=== PATIENT | female | born 1955 | race Asian ===

== ENCOUNTER 2017-03-10 12:34 | Emergency (ER) | payer BC ==
[~2017-03-10] VITALS: Ht 157.5 cm; Wt 60.0 kg
[2017-03-10 12:47] VITALS: BP 131/70
== END 2017-03-10 15:59 | disposition home or self-care (01) ==
LOC: ER 13:18
DX: S93.401A Sprain of unspecified ligament of right ankle, initial encounter (principal); W19.XXXA Unspecified fall, initial encounter; Y93.89 Activity, other specified; Y92.009 Unspecified place in unspecified non-institutional (private) residence as the place of occurrence of the external cause; Y99.8 Other external cause status; F17.200 Nicotine dependence, unspecified, uncomplicated
CPT/HCPCS: 73610; 73630; 99284

== ENCOUNTER → 2017-03-24 | Outpatient (CLI) | payer BC ==
[2017-03-24 08:14] LABS: BASOPHILS % 0.5 % (0.0-2.0); EOSINOPHILS % 4.3 % (0.0-5.0); HEMATOCRIT. 38.6 % (36.0-48.0); HEMOGLOBIN. 13.2 g/dL (12.0-16.0); LYMPHOCYTES % 27.2 % (20.0-50.0); MEAN CORPUSCULAR HEMOGLOBIN 31.3 pg (28.0-32.0); MEAN CORPUSCULAR VOLUME 91.4 fL (81.0-99.0); MEAN PLATELET VOLUME 7.4 fl (7.4-10.4); MONOCYTES % 5.1 % (2.0-8.0); NEUTROPHILS % 62.9 % (40.0-76.0); PLATELET 222 x1000/uL (130-400); RED BLOOD CELL COUNT 4.23 mill/uL (4.2-5.4); RED CELL DISTRIBUTION WIDTH 12.7 % (11.6-14.6)
[2017-03-24 09:02] LABS: CLARITY URINE CLEAR (CLEAR); COLOR URINE YELLOW (YELLOW); GLUCOSE URINE NEGATIVE (NEGATIVE); KETONES URINE NEGATIVE (NEGATIVE); LEUKOCYTE ESTERASE URINE NEGATIVE (NEGATIVE); NITRITE URINE NEGATIVE (NEGATIVE); OCCULT BLOOD URINE 2+ (NEGATIVE); PROTEIN URINE NEGATIVE (NEGATIVE); UROBILINOGEN URINE 0.2 E.U./dL (0.2-1.0)
[2017-03-24 09:13] LABS: CARBON DIOXIDE 25 mEq/L (21-32); CHLORIDE 107 mEq/L (98-107); TOTAL IRON BINDING CAPACITY 270 ug/dL (250-450)
[2017-03-24 10:06] LABS: C REACTIVE PROTEIN QUANT 2.3 mg/L (0.0-3.0); HDL CHOLESTEROL 51 mg/dL (40-59); LDL CHOLESTEROL 85 mg/dL (5-100); T4 FREE 1.19 ng/dL (0.76-1.46)
[2017-03-25 17:18] LABS: ESTRADIOL < 6.0 pg/mL (.); FOLICLE STIMULATING HORMONE 49.2 mIU/mL (.); LUTEINIZING HORMONE 29.4 mIU/mL (.); PROGESTERONE 0.2 ng/mL (.); TRANSFERRIN 219 mg/dL (200-370)
[2017-03-25 17:58] LABS: HAV IGM ANTIBODY Negative (Negative); HBSAG SCREEN Negative (Negative); HEPATITIS B CORE IGM AB Negative (Negative); HEPATITIS C AB >11.0 s/co ratio (0.0-0.9)
[2017-03-26 13:06] LABS: VITAMIN D 25-OH 29.1 ng/mL (30.0-100.0)
== END | disposition home or self-care (01) ==
LOC: LAB 07:47
PROVIDERS: ATTEND Internal Medicine
DX: D50.9 Iron deficiency anemia, unspecified (principal); B17.9 Acute viral hepatitis, unspecified; E78.5 Hyperlipidemia, unspecified; N95.9 Unspecified menopausal and perimenopausal disorder; M10.00 Idiopathic gout, unspecified site; R94.5 Abnormal results of liver function studies; R68.89 Other general symptoms and signs; R94.4 Abnormal results of kidney function studies; R70.0 Elevated erythrocyte sedimentation rate; R73.09 Other abnormal glucose; R87.1 Abnormal level of hormones in specimens from female genital organs
CPT/HCPCS: 36415; 80053; 80061; 80074; 81001; 82024; 82248; 82306; 82533; 82626; 82670; 83001; 83002; 83036; 83540; 83550; 84100; 84144; 84403; 84439; 84443; 84466; 84481; 84550; 85025; 85651; 86140

== ENCOUNTER → 2017-08-11 | Outpatient (CLI) | payer BC ==
[2017-08-11 06:50] LABS: BASOPHILS % 0.7 % (0.0-2.0); EOSINOPHILS % 3.9 % (0.0-5.0); HEMATOCRIT. 41.8 % (36.0-48.0); LYMPHOCYTES % 33.5 % (20.0-50.0); MEAN CORPUSCULAR HEMOGLOBIN 31.3 pg (28.0-32.0); MEAN CORPUSCULAR VOLUME 93.1 fL (81.0-99.0); MEAN PLATELET VOLUME 7.5 fl (7.4-10.4); MONOCYTES % 5.6 % (2.0-8.0); NEUTROPHILS % 56.3 % (40.0-76.0); PLATELET 229 x1000/uL (130-400); RED BLOOD CELL COUNT 4.49 mill/uL (4.2-5.4)
[2017-08-11 07:24] LABS: CORTISOL 9.3 ucg/dL
[2017-08-11 07:31] LABS: CARBON DIOXIDE 26 mEq/L (21-32); CHLORIDE 105 mEq/L (98-107); HDL CHOLESTEROL 59 mg/dL (40-59); LDL CHOLESTEROL 168 mg/dL (5-100); T4 FREE 1.15 ng/dL (0.76-1.46); TOTAL IRON BINDING CAPACITY 276 ug/dL (250-450)
[2017-08-11 07:36] LABS: HEPATITIS B SURFACE ANTIGEN NEGATIVE
[2017-08-11 08:03] LABS: HEPATITIS B CORE AB IGM NEGATIVE
[2017-08-11 08:05] LABS: HEPATITIS A AB IGM NEGATIVE (NEGATIVE)
[2017-08-11 12:54] LABS: CLARITY URINE CLEAR (CLEAR); COLOR URINE YELLOW (YELLOW); GLUCOSE URINE NEGATIVE (NEGATIVE); KETONES URINE NEGATIVE (NEGATIVE); LEUKOCYTE ESTERASE URINE NEGATIVE (NEGATIVE); NITRITE URINE NEGATIVE (NEGATIVE); OCCULT BLOOD URINE TRACE (NEGATIVE); PROTEIN URINE NEGATIVE (NEGATIVE); SPECIFIC GRAVITY URINE 1.011 (1.005-1.030); UROBILINOGEN URINE 0.2 E.U./dL (0.2-1.0)
[2017-08-12 09:06] LABS: ESTRADIOL < 6.0 pg/mL (.); FOLICLE STIMULATING HORMONE 52.7 mIU/mL (.); LUTEINIZING HORMONE 30.8 mIU/mL (.); PROGESTERONE <0.1 ng/mL (.); TRANSFERRIN 219 mg/dL (200-370); VITAMIN D 25-OH 63.9 ng/mL (30.0-100.0)
== END | disposition home or self-care (01) ==
LOC: LAB 06:15
PROVIDERS: ATTEND Internal Medicine
DX: I10 Essential (primary) hypertension (principal); D64.9 Anemia, unspecified; E55.9 Vitamin D deficiency, unspecified; E78.00 Pure hypercholesterolemia, unspecified; D68.9 Coagulation defect, unspecified; N39.0 Urinary tract infection, site not specified; N95.9 Unspecified menopausal and perimenopausal disorder; R87.1 Abnormal level of hormones in specimens from female genital organs; R60.9 Edema, unspecified; R94.6 Abnormal results of thyroid function studies; R94.5 Abnormal results of liver function studies; R10.9 Unspecified abdominal pain
CPT/HCPCS: 36415; 80053; 80061; 81001; 82024; 82248; 82306; 82533; 82626; 82670; 83001; 83002; 83036; 83540; 83550; 84100; 84144; 84403; 84439; 84443; 84466; 84481; 84550; 85025; 85651; 86140; 86705; 86709; 86803; 87340

== ENCOUNTER → 2017-11-30 | Outpatient (CLI) | payer BC ==
[2017-11-30 10:13] LABS: BASOPHILS % 1.4 % (0.0-2.0); EOSINOPHILS % 3.3 % (0.0-5.0); HEMATOCRIT. 39.8 % (36.0-48.0); HEMOGLOBIN. 13.5 g/dL (12.0-16.0); LYMPHOCYTES % 36.3 % (20.0-50.0); MEAN CORPUSCULAR HEMOGLOBIN 31.6 pg (28.0-32.0); MEAN CORPUSCULAR VOLUME 93.2 fL (81.0-99.0); MEAN PLATELET VOLUME 7.6 fl (7.4-10.4); MONOCYTES % 5.7 % (2.0-8.0); NEUTROPHILS % 53.3 % (40.0-76.0); PLATELET 204 x1000/uL (130-400); RED BLOOD CELL COUNT 4.28 mill/uL (4.2-5.4); RED CELL DISTRIBUTION WIDTH 12.9 % (11.6-14.6)
[2017-11-30 10:49] LABS: KETONES URINE NEGATIVE (NEGATIVE); LEUKOCYTE ESTERASE URINE NEGATIVE (NEGATIVE); NITRITE URINE NEGATIVE (NEGATIVE); OCCULT BLOOD URINE 1+ (NEGATIVE); PH URINE 5.5 (4.5-8.0); PROTEIN URINE NEGATIVE (NEGATIVE); UROBILINOGEN URINE 0.2 E.U./dL (0.2-1.0)
[2017-11-30 10:50] LABS: CLARITY URINE CLEAR (CLEAR); COLOR URINE YELLOW (YELLOW)
[2017-11-30 11:01] LABS: CHLORIDE 108 mEq/L (98-107)
[2017-11-30 11:15] LABS: C REACTIVE PROTEIN QUANT 1.3 mg/L (0.0-3.0); HDL CHOLESTEROL 55 mg/dL (40-59); LDL CHOLESTEROL 99 mg/dL (5-100); PHOSPHORUS 3.4 mg/dL (2.5-4.9); T4 FREE 1.11 ng/dL (0.76-1.46); TOTAL IRON BINDING CAPACITY 272 ug/dL (250-450)
[2017-11-30 12:33] LABS: FOLIC ACID (FOLATE) SERUM >20 ng/mL ng/mL (>5.38)
[2017-11-30 12:34] LABS: CORTISOL 6.9 ucg/dL; TRIOIODOTHYRONINE TOTAL 1.29 ng/ml (0.60-1.81)
[2017-12-01 09:06] LABS: ESTRADIOL < 6.0 pg/mL (.); FOLICLE STIMULATING HORMONE 47.1 mIU/mL (.); HAV IGM ANTIBODY Negative (Negative); HBSAG SCREEN Negative (Negative); HEPATITIS B CORE IGM AB Negative (Negative); HEPATITIS C AB >11.0 s/co ratio (0.0-0.9); LUTEINIZING HORMONE 26.8 mIU/mL (.); PROGESTERONE 0.2 ng/mL (.); TRANSFERRIN 219 mg/dL (200-370); VITAMIN D 25-OH 64.6 ng/mL (30.0-100.0)
== END | disposition home or self-care (01) ==
LOC: MAMMO 09:04
PROVIDERS: ATTEND Internal Medicine
DX: Z12.31 Encounter for screening mammogram for malignant neoplasm of breast (principal); I10 Essential (primary) hypertension; E78.00 Pure hypercholesterolemia, unspecified; N39.0 Urinary tract infection, site not specified; D68.9 Coagulation defect, unspecified; N95.9 Unspecified menopausal and perimenopausal disorder; E55.9 Vitamin D deficiency, unspecified; R10.9 Unspecified abdominal pain; R94.5 Abnormal results of liver function studies; R87.1 Abnormal level of hormones in specimens from female genital organs; R60.9 Edema, unspecified
CPT/HCPCS: 36415; 71046; 77067; 80053; 80061; 80074; 80076; 81003; 82024; 82306; 82533; 82626; 82670; 82746; 83001; 83002; 83036; 83540; 83550; 84100; 84144; 84403; 84439; 84443; 84466; 84480; 84481; 84550; 85025; 85651; 86140

== ENCOUNTER 2018-10-11 10:03 | Emergency (ER) | payer BC ==
[~2018-10-11] VITALS: Ht 157.5 cm; Wt 59.0 kg
[2018-10-11 10:12] VITALS: BP 166/81
[2018-10-11 11:09] LABS: CLARITY URINE CLOUDY (CLEAR); COLOR URINE YELLOW (YELLOW); KETONES URINE TRACE (NEGATIVE); LEUKOCYTE ESTERASE URINE NEGATIVE (NEGATIVE); NITRITE URINE NEGATIVE (NEGATIVE); OCCULT BLOOD URINE 1+ (NEGATIVE); PH URINE 5.5 (4.5-8.0); PROTEIN URINE TRACE (NEGATIVE); SPECIFIC GRAVITY URINE 1.044 (1.005-1.030); UROBILINOGEN URINE 0.2 E.U./dL (0.2-1.0)
[2018-10-11 12:11] LABS: CHLORIDE 103 mEq/L (98-107)
== END 2018-10-11 13:18 | disposition home or self-care (01) ==
LOC: ER 10:03
DX: L29.2 Pruritus vulvae (principal); E11.65 Type 2 diabetes mellitus with hyperglycemia; I10 Essential (primary) hypertension; F41.9 Anxiety disorder, unspecified; F17.210 Nicotine dependence, cigarettes, uncomplicated; Z98.890 Other specified postprocedural states
CPT/HCPCS: 36415; 80048; 80076; 82962; 87210; 99283

== ENCOUNTER → 2019-02-27 | Outpatient (CLI) | payer BC | END | disposition home or self-care (01) | LOC: MAMMO 09:25 | PROVIDERS: ATTEND Internal Medicine | DX: Z12.31 Encounter for screening mammogram for malignant neoplasm of breast (principal) | CPT/HCPCS: 77067 ==

== ENCOUNTER → 2019-04-11 | Outpatient (CLI) | payer BC ==
[2019-04-11 08:11] LABS: CLARITY URINE CLEAR (CLEAR); COLOR URINE YELLOW (YELLOW); KETONES URINE NEGATIVE (NEGATIVE); LEUKOCYTE ESTERASE URINE NEGATIVE (NEGATIVE); NITRITE URINE NEGATIVE (NEGATIVE); OCCULT BLOOD URINE TRACE (NEGATIVE); PROTEIN URINE NEGATIVE (NEGATIVE); SPECIFIC GRAVITY URINE 1.002 (1.005-1.030); UROBILINOGEN URINE 0.2 E.U./dL (0.2-1.0)
[2019-04-11 08:12] LABS: BASOPHILS % 0.7 % (0.0-2.0); EOSINOPHILS % 3.5 % (0.0-5.0); HEMOGLOBIN. 14.4 g/dL (12.0-16.0); LYMPHOCYTES % 31.5 % (20.0-50.0); MEAN CORPUSCULAR HEMOGLOBIN 32.6 pg (28.0-32.0); MEAN CORPUSCULAR VOLUME 94.8 fL (81.0-99.0); MEAN PLATELET VOLUME 7.3 fl (7.4-10.4); MONOCYTES % 4.5 % (2.0-8.0); NEUTROPHILS % 59.8 % (40.0-76.0); PLATELET 241 x1000/uL (130-400); RED BLOOD CELL COUNT 4.43 mill/uL (4.2-5.4); RED CELL DISTRIBUTION WIDTH 13.1 % (11.6-14.6)
[2019-04-11 08:22] LABS: CHLORIDE 102 mEq/L (98-107)
[2019-04-11 08:28] LABS: LDL CHOLESTEROL 158 mg/dL (5-100); PHOSPHORUS 3.3 mg/dL (2.5-4.9)
[2019-04-11 08:29] LABS: C REACTIVE PROTEIN QUANT 1.5 mg/L (0.0-3.0)
[2019-04-11 08:30] LABS: HDL CHOLESTEROL 58 mg/dL (40-59); TOTAL IRON BINDING CAPACITY 236 ug/dL (250-450)
[2019-04-11 08:32] LABS: T4 FREE 1.11 ng/dL (0.76-1.46)
[2019-04-11 08:37] LABS: CORTISOL 6.6 ucg/dL; TRIOIODOTHYRONINE TOTAL 1.15 ng/ml (0.60-1.81)
[2019-04-11 08:48] LABS: HEPATITIS B SURFACE ANTIGEN NEGATIVE
[2019-04-11 09:17] LABS: HEPATITIS A AB IGM NEGATIVE (NEGATIVE)
[2019-04-12 09:15] LABS: FOLICLE STIMULATING HORMONE 54.4 mIU/mL (.); HELICOBACTER PYLORI AB IGG 1.3 (0.00-0.79); LUTEINIZING HORMONE 31.5 mIU/mL (.); PROGESTERONE 0.2 ng/mL (.); VITAMIN D 25-OH 36.6 ng/mL (30.0-100.0)
[2019-04-12 17:11] LABS: HELICOBACTER PYLORI IGM <9.0 units (0.0-8.9)
[2019-04-13 09:06] LABS: TRANSFERRIN 240 mg/dL (200-370)
== END | disposition home or self-care (01) ==
LOC: LAB 07:22
PROVIDERS: ATTEND Internal Medicine
DX: D64.9 Anemia, unspecified (principal); E78.00 Pure hypercholesterolemia, unspecified; I10 Essential (primary) hypertension; N39.0 Urinary tract infection, site not specified; E55.9 Vitamin D deficiency, unspecified; D68.9 Coagulation defect, unspecified; R10.9 Unspecified abdominal pain; R94.5 Abnormal results of liver function studies; R60.9 Edema, unspecified; R94.6 Abnormal results of thyroid function studies; N95.9 Unspecified menopausal and perimenopausal disorder; R87.1 Abnormal level of hormones in specimens from female genital organs
CPT/HCPCS: 36415; 80061; 80076; 82024; 82248; 82306; 82533; 82626; 83001; 83002; 83036; 83540; 83550; 84100; 84144; 84403; 84436; 84439; 84443; 84466; 84480; 84481; 84550; 85651; 86140; 86677; 86705; 86709; 86803; 87340

== ENCOUNTER → 2019-05-01 | Outpatient (CLI) | payer BC ==
[2019-05-01 14:06] LABS: CLARITY URINE CLEAR (CLEAR); COLOR URINE YELLOW (YELLOW); KETONES URINE NEGATIVE (NEGATIVE); LEUKOCYTE ESTERASE URINE NEGATIVE (NEGATIVE); NITRITE URINE NEGATIVE (NEGATIVE); OCCULT BLOOD URINE TRACE (NEGATIVE); PROTEIN URINE NEGATIVE (NEGATIVE); SPECIFIC GRAVITY URINE 1.002 (1.005-1.030); UROBILINOGEN URINE 0.2 E.U./dL (0.2-1.0)
== END | disposition home or self-care (01) ==
LOC: LAB 13:29
PROVIDERS: ATTEND Internal Medicine
DX: N39.0 Urinary tract infection, site not specified (principal)
CPT/HCPCS: 81003

== ENCOUNTER → 2019-10-28 | Outpatient (CLI) | payer BC ==
[2019-10-28 09:11] LABS: BASOPHILS % 0.1 % (0.0-2.0); HEMATOCRIT. 42.4 % (36.0-48.0); HEMOGLOBIN. 14.5 g/dL (12.0-16.0); LYMPHOCYTES % 20.3 % (20.0-50.0); MEAN CORPUSCULAR HEMOGLOBIN 32.3 pg (28.0-32.0); MEAN CORPUSCULAR VOLUME 94.6 fL (81.0-99.0); MEAN PLATELET VOLUME 7.8 fl (7.4-10.4); MONOCYTES % 3.5 % (2.0-8.0); NEUTROPHILS % 74.1 % (40.0-76.0); PLATELET 215 x1000/uL (130-400); RED BLOOD CELL COUNT 4.49 mill/uL (4.2-5.4); RED CELL DISTRIBUTION WIDTH 12.6 % (11.6-14.6)
[2019-10-28 09:16] LABS: CLARITY URINE CLEAR (CLEAR); COLOR URINE YELLOW (YELLOW); KETONES URINE NEGATIVE (NEGATIVE); LEUKOCYTE ESTERASE URINE NEGATIVE (NEGATIVE); NITRITE URINE NEGATIVE (NEGATIVE); OCCULT BLOOD URINE TRACE (NEGATIVE); PROTEIN URINE NEGATIVE (NEGATIVE); SPECIFIC GRAVITY URINE 1.003 (1.005-1.030); UROBILINOGEN URINE 0.2 E.U./dL (0.2-1.0)
[2019-10-28 10:47] LABS: CHLORIDE 106 mEq/L (98-107)
[2019-10-28 10:52] LABS: LDL CHOLESTEROL 189 mg/dL (5-100)
[2019-10-28 10:54] LABS: HDL CHOLESTEROL 63 mg/dL (40-59)
[2019-10-28 10:59] LABS: C REACTIVE PROTEIN QUANT 1.3 mg/L (0.0-3.0)
[2019-10-28 11:00] LABS: T4 FREE 1.16 ng/dL (0.76-1.46)
[2019-10-29 09:09] LABS: FOLICLE STIMULATING HORMONE 45.7 mIU/mL (.); LUTEINIZING HORMONE 26.7 mIU/mL (.); PROGESTERONE 0.2 ng/mL (.); TRANSFERRIN 228 mg/dL (200-370); VITAMIN D 25-OH 27.3 ng/mL (30.0-100.0)
[2019-10-29 20:11] LABS: CORTISOL 6.7 ucg/dL; TRIOIODOTHYRONINE TOTAL 1.15 ng/ml (0.60-1.81)
[2019-10-29 20:23] LABS: HEPATITIS B SURFACE ANTIGEN NEGATIVE
== END | disposition home or self-care (01) ==
LOC: LAB 08:14
PROVIDERS: ATTEND Internal Medicine
DX: I10 Essential (primary) hypertension (principal); E78.00 Pure hypercholesterolemia, unspecified; E55.9 Vitamin D deficiency, unspecified; D64.9 Anemia, unspecified; N39.0 Urinary tract infection, site not specified; N95.9 Unspecified menopausal and perimenopausal disorder; D68.9 Coagulation defect, unspecified; R94.6 Abnormal results of thyroid function studies; R60.9 Edema, unspecified; R94.5 Abnormal results of liver function studies; R87.1 Abnormal level of hormones in specimens from female genital organs
CPT/HCPCS: 36415; 80053; 80061; 81003; 82024; 82248; 82306; 82533; 82626; 83001; 83002; 83036; 84100; 84144; 84403; 84439; 84443; 84466; 84480; 84481; 84550; 85025; 85651; 86140; 86677; 86705; 86709; 86803; 87340

== ENCOUNTER 2020-01-17 12:56 | Inpatient (IN) | payer BC ==
[~2020-01-17] VITALS: Ht 154.9 cm; Wt 59.0 kg
[2020-01-17] VITALS (24 sets, daily range): BP systolic 44–160; BP diastolic 28–94
[2020-01-17 14:04] LABS: CLARITY URINE CLEAR (CLEAR); COLOR URINE YELLOW (YELLOW); KETONES URINE NEGATIVE (NEGATIVE); LEUKOCYTE ESTERASE URINE TRACE (NEGATIVE); NITRITE URINE NEGATIVE (NEGATIVE); OCCULT BLOOD URINE 1+ (NEGATIVE); PH URINE 5.5 (4.5-8.0); PROTEIN URINE NEGATIVE (NEGATIVE); SPECIFIC GRAVITY URINE 1.019 (1.005-1.030)
[2020-01-17 14:06] LABS: BASOPHILS % 0.3 % (0.0-2.0); EOSINOPHILS % 2.6 % (0.0-5.0); HEMOGLOBIN. 13.9 g/dL (12.0-16.0); LYMPHOCYTES % 34.1 % (20.0-50.0); MEAN CORPUSCULAR HEMOGLOBIN 31.7 pg (28.0-32.0); MEAN PLATELET VOLUME 7.5 fl (7.4-10.4); PLATELET 222 x1000/uL (130-400); RED BLOOD CELL COUNT 4.37 mill/uL (4.2-5.4); RED CELL DISTRIBUTION WIDTH 13.1 % (11.6-14.6)
[2020-01-17 14:09] LABS: CHLORIDE 106 mEq/L (98-107)
[2020-01-17 14:12] LABS: INR 0.9; PROTHROMBIN TIME 10.3 sec (9.6-11.0)
[2020-01-17] MEDS ORDERED: DEXAMETHASONE 4MG/ML 1ML VIAL IV ONE (14:30)
[2020-01-17] MEDS ORDERED: LEVETIRACETAM 500MG PREMIX 100 ML IV ONE (14:30)
[2020-01-17] MEDS ORDERED: LEVETIRACETAM 1000MG/100ML 100 ML IV NR (15:45)
[2020-01-17] MEDS ORDERED: GADOBENATE DIMEGLUMINE 529 MG/ML 10ML IV ONE (16:07)
[2020-01-17] MEDS ORDERED: NICARDIPINE 100 MG in SODIUM CHLORIDE 0.9% 60 ML IV PRN ×2 (16:45→18:15)
[2020-01-17] MEDS ORDERED: MORPHINE SULFATE 2 MG/ML CPJ (NOT FOR IM USE) IV PRN (16:45)
[2020-01-17] MEDS ORDERED: LEVETIRACETAM 500MG PREMIX 100 ML IV SCH (17:00)
[2020-01-17] MEDS ORDERED: DEXAMETHASONE 4MG/ML 1ML VIAL IV SCH (18:00)
[2020-01-17] MEDS: DEXT 5%/LACTATED RINGERS 1,000 ML IV SCH (18:06)
[2020-01-17] MEDS: MORPHINE SULFATE 2 MG/ML CPJ (NOT FOR IM USE) IV PRN (20:55)
[2020-01-17] MEDS: LEVETIRACETAM 500MG PREMIX 100 ML IV SCH (23:42)
[2020-01-17] MEDS: DEXAMETHASONE 4MG/ML 1ML VIAL IV SCH (23:43)
[2020-01-18] VITALS (85 sets, daily range): BP systolic 78–146; BP diastolic 38–108
[2020-01-18] MEDS: MORPHINE SULFATE 2 MG/ML CPJ (NOT FOR IM USE) IV PRN ×2 (02:35→11:48)
[2020-01-18] MEDS: DEXAMETHASONE 4MG/ML 1ML VIAL IV SCH (05:52)
[2020-01-18] MEDS ORDERED: NORMAL SALINE 0.9% 10 ML SYR ONE (06:23)
[2020-01-18] MEDS ORDERED: BACITRACIN 15GM TUBE TOP ONE (06:23)
[2020-01-18] MEDS ORDERED: THROMBIN (BOVINE) 5000 UNITS/VIAL TOP ONE (06:23)
[2020-01-18] MEDS ORDERED: LIDOCAINE HCL/EPINEPHRINE 1%-EPI 1:100,000 20 ML VIAL ONE (06:24)
[2020-01-18] MEDS ORDERED: BACITRACIN 50,000 UNITS/VIAL ONE (06:24)
[2020-01-18] MEDS ORDERED: ROCURONIUM BROMIDE 10MG/ML VIAL 5ML IV ONE (06:48)
[2020-01-18] MEDS ORDERED: FENTANYL CITRATE/PF 50MCG/ML 2ML VIAL ONE (06:48)
[2020-01-18] MEDS ORDERED: EPINEPHRINE 1:1000 1 MG/ML AMP ONE (06:48)
[2020-01-18] MEDS ORDERED: GLYCOPYRROLATE 0.2 MG/ML 2ML VIAL ONE (06:49)
[2020-01-18] MEDS ORDERED: PROPOFOL 200MG/20ML VIAL IV ONE (06:49)
[2020-01-18] MEDS ORDERED: MIDAZOLAM HCL 2 MG/2 ML VIAL ONE (06:49)
[2020-01-18] MEDS ORDERED: NEOSTIGMINE METHYLSULFATE 1MG/ML 10 ML VIAL ONE (06:49)
[2020-01-18] MEDS ORDERED: DEXAMETHASONE 4MG/ML 1ML VIAL ONE ×2 (07:04→08:19)
[2020-01-18] MEDS ORDERED: PHENYTOIN SODIUM 250MG/5ML VIAL IV ONE (07:04)
[2020-01-18] MEDS ORDERED: MANNITOL 20% 500 ML IV ONE (07:04)
[2020-01-18] MEDS ORDERED: PHENYTOIN SODIUM 100MG/2ML VIAL IV SCH ×2 (07:15→14:00)
[2020-01-18] MEDS ORDERED: MORPHINE SULFATE 4 MG/ML CPJ (NOT FOR IM USE) IV PRN (07:15)
[2020-01-18] MEDS ORDERED: LEVETIRACETAM 500MG PREMIX 100 ML IV ONE (07:32)
[2020-01-18] MEDS ORDERED: SODIUM CHLORIDE 0.9% 10ML VIAL ONE (09:36)
[2020-01-18] MEDS ORDERED: CEFAZOLIN SODIUM 1000MG/VIAL ONE (09:36)
[2020-01-18] MEDS: PANTOPRAZOLE SODIUM 40 MG/VIAL IV SCH (10:27)
[2020-01-18] MEDS: DEXAMETHASONE 10 MG/ML VIAL IV SCH ×4 (10:27→21:31)
[2020-01-18] MEDS: LEVETIRACETAM 500MG PREMIX 100 ML IV SCH ×2 (10:28→21:31)
[2020-01-18 11:42] LABS: CHLORIDE 108 mEq/L (98-107)
[2020-01-18 12:07] LABS: HEMATOCRIT. 33.2 % (36.0-48.0); HEMOGLOBIN. 11.4 g/dL (12.0-16.0); MEAN CORPUSCULAR HEMOGLOBIN 32.2 pg (28.0-32.0); MEAN CORPUSCULAR VOLUME 93.7 fL (81.0-99.0); MEAN PLATELET VOLUME 7.7 fl (7.4-10.4); PLATELET 181 x1000/uL (130-400); RED BLOOD CELL COUNT 3.54 mill/uL (4.2-5.4)
[2020-01-18 13:01] LABS: PLATELET ESTIMATE NORMAL
[2020-01-18] MEDS: DEXT 5%/LACTATED RINGERS 1,000 ML IV SCH (13:50)
[2020-01-18] MEDS: CEFAZOLIN 1000MG PREMIX 50 ML IV SCH ×2 (13:54→21:31)
[2020-01-18] MEDS ORDERED: CEFAZOLIN SODIUM 1000MG/VIAL IV SCH (14:00)
[2020-01-18] MEDS ORDERED: DEXTROSE 50% WATER 50ML SYRINGE IV PRN (17:15)
[2020-01-18] MEDS: METFORMIN HCL 500MG TABLET PO SCH (17:35)
[2020-01-18] MEDS: BLOOD SUGAR DIAGNOSTIC STRIP TEST SCH ×2 (17:37→21:31)
[2020-01-18] MEDS: INSULIN LISPRO 100 UNITS/ML SUBCUT SCH ×2 (17:46→21:34)
[2020-01-19] VITALS (99 sets, daily range): BP systolic 79–169; BP diastolic 31–105
[2020-01-19] MEDS: DEXAMETHASONE 10 MG/ML VIAL IV SCH ×6 (00:23→20:58)
[2020-01-19] MEDS: BLOOD SUGAR DIAGNOSTIC STRIP TEST SCH ×4 (06:51→20:43)
[2020-01-19] MEDS: CEFAZOLIN 1000MG PREMIX 50 ML IV SCH ×3 (06:55→21:57)
[2020-01-19] MEDS: INSULIN LISPRO 100 UNITS/ML SUBCUT SCH ×4 (07:02→20:58)
[2020-01-19] MEDS: METFORMIN HCL 500MG TABLET PO SCH ×2 (07:02→17:26)
[2020-01-19 07:54] LABS: HEMATOCRIT. 32.7 % (36.0-48.0); HEMOGLOBIN. 11.1 g/dL (12.0-16.0); MEAN CORPUSCULAR VOLUME 94.2 fL (81.0-99.0); MEAN PLATELET VOLUME 8.1 fl (7.4-10.4); PLATELET 201 x1000/uL (130-400); RED BLOOD CELL COUNT 3.47 mill/uL (4.2-5.4); RED CELL DISTRIBUTION WIDTH 13.1 % (11.6-14.6)
[2020-01-19 08:00] LABS: CHLORIDE 108 mEq/L (98-107)
[2020-01-19] MEDS: PANTOPRAZOLE SODIUM 40 MG/VIAL IV SCH (10:05)
[2020-01-19] MEDS: LEVETIRACETAM 500MG PREMIX 100 ML IV SCH ×2 (10:07→20:58)
[2020-01-19] MEDS: MORPHINE SULFATE 2 MG/ML CPJ (NOT FOR IM USE) IV PRN ×2 (10:07→18:27)
[2020-01-19] MEDS: DEXT 5%/LACTATED RINGERS 1,000 ML IV SCH (12:48)
[2020-01-20] VITALS (36 sets, daily range): BP systolic 99–147; BP diastolic 39–112
[2020-01-20] MEDS: DEXAMETHASONE 10 MG/ML VIAL IV SCH ×3 (00:29→08:07)
[2020-01-20] MEDS: MORPHINE SULFATE 2 MG/ML CPJ (NOT FOR IM USE) IV PRN ×2 (05:10→11:41)
[2020-01-20] MEDS: CEFAZOLIN 1000MG PREMIX 50 ML IV SCH (05:59)
[2020-01-20] MEDS: BLOOD SUGAR DIAGNOSTIC STRIP TEST SCH ×4 (07:41→21:19)
[2020-01-20 07:47] LABS: HEMATOCRIT. 32.5 % (36.0-48.0); HEMOGLOBIN. 11.1 g/dL (12.0-16.0); MEAN CORPUSCULAR HEMOGLOBIN 32.4 pg (28.0-32.0); MEAN CORPUSCULAR VOLUME 94.3 fL (81.0-99.0); PLATELET 161 x1000/uL (130-400); RED BLOOD CELL COUNT 3.44 mill/uL (4.2-5.4); RED CELL DISTRIBUTION WIDTH 12.9 % (11.6-14.6)
[2020-01-20 08:07] LABS: CHLORIDE 107 mEq/L (98-107)
[2020-01-20] MEDS: METFORMIN HCL 500MG TABLET PO SCH ×2 (08:07→18:37)
[2020-01-20] MEDS: FAMOTIDINE 20MG/2ML VIAL IV SCH ×2 (08:07→21:29)
[2020-01-20] MEDS: LEVETIRACETAM 500MG PREMIX 100 ML IV SCH ×2 (08:07→21:30)
[2020-01-20] MEDS: INSULIN LISPRO 100 UNITS/ML SUBCUT SCH ×4 (08:08→21:00)
[2020-01-20 08:35] LABS: PLATELET ESTIMATE NORMAL
[2020-01-20 11:03] LABS: PLATELET ESTIMATE NORMAL
[2020-01-20] MEDS ORDERED: HYDRALAZINE 20MG/ML VIAL IV PRN (13:30)
[2020-01-20] MEDS ORDERED: METF-414 PO (13:35)
[2020-01-20] MEDS: HYDROCODONE/ACETAMINOPHEN 5/325MG TABLET PO PRN (17:42)
[2020-01-20] MEDS ORDERED: PNEUMOCOCCAL 23-VAL P-SAC VAC 0.5 ML IM ONE (18:30)
[2020-01-20] MEDS: DEXAMETHASONE 4MG TABLET PO SCH (21:29)
[2020-01-20] MEDS ORDERED: ONDANSETRON HCL 4MG/2ML INJ IV PRN (21:30)
[2020-01-21] VITALS (11 sets, daily range): BP systolic 92–160; BP diastolic 51–100
[2020-01-21 06:37] LABS: BASOPHILS % 0.1 % (0.0-2.0); HEMATOCRIT. 30.2 % (36.0-48.0); HEMOGLOBIN. 10.7 g/dL (12.0-16.0); LYMPHOCYTES % 9.7 % (20.0-50.0); MEAN CORPUSCULAR VOLUME 93.4 fL (81.0-99.0); MEAN PLATELET VOLUME 8.2 fl (7.4-10.4); MONOCYTES % 3.7 % (2.0-8.0); NEUTROPHILS % 86.5 % (40.0-76.0); PLATELET 172 x1000/uL (130-400); RED BLOOD CELL COUNT 3.23 mill/uL (4.2-5.4); RED CELL DISTRIBUTION WIDTH 12.8 % (11.6-14.6)
[2020-01-21 06:57] LABS: CHLORIDE 104 mEq/L (98-107)
[2020-01-21] MEDS: BLOOD SUGAR DIAGNOSTIC STRIP TEST SCH ×2 (07:30→11:55)
[2020-01-21] MEDS ORDERED: HYDRALAZINE 20MG/ML VIAL IV PRN (07:30)
[2020-01-21] MEDS: INSULIN LISPRO 100 UNITS/ML SUBCUT SCH ×2 (08:00→12:11)
[2020-01-21] MEDS: DEXAMETHASONE 4MG TABLET PO SCH (08:15)
[2020-01-21] MEDS: LEVETIRACETAM 500MG PREMIX 100 ML IV SCH (08:15)
[2020-01-21] MEDS: METFORMIN HCL 500MG TABLET PO SCH (08:15)
[2020-01-21] MEDS: HYDROCODONE/ACETAMINOPHEN 5/325MG TABLET PO PRN ×2 (09:58→15:42)
[2020-01-21] MEDS: FAMOTIDINE 20MG/2ML VIAL IV SCH (10:11)
[2020-01-22] MEDS ORDERED: DEXAMETHASONE 2MG TABLET PO SCH (09:00)
== END 2020-01-21 16:45 | DRG 25 ==
LOC: ER 13:44 → EDBEDREQSVC 15:23 → EDBEDREQ 15:23 → EDBEDREQTM 15:23 → 5EST 17:11 → ENRESERV 17:14 → EDBEDREQTM 17:23 → EDBEDREQ 17:23 → 5EST 01-20 17:10
PROVIDERS: ADMIT Internal Medicine; ATTEND Internal Medicine
PROC: 00B00ZZ Excision of Brain, Open Approach (ICD-10-PCS; principal; 2020-01-18)
PROC: 00U207Z Supplement Dura Mater with Autologous Tissue Substitute, Open Approach (ICD-10-PCS; 2020-01-18)
DX: C79.31 Secondary malignant neoplasm of brain (principal); G93.6 Cerebral edema; I61.9 Nontraumatic intracerebral hemorrhage, unspecified; G81.94 Hemiplegia, unspecified affecting left nondominant side; E46 Unspecified protein-calorie malnutrition; G93.40 Encephalopathy, unspecified; C34.91 Malignant neoplasm of unspecified part of right bronchus or lung; E11.9 Type 2 diabetes mellitus without complications; F41.9 Anxiety disorder, unspecified; B19.20 Unspecified viral hepatitis C without hepatic coma; R00.1 Bradycardia, unspecified; J44.9 Chronic obstructive pulmonary disease, unspecified; D64.9 Anemia, unspecified; D72.829 Elevated white blood cell count, unspecified; F17.210 Nicotine dependence, cigarettes, uncomplicated; I11.9 Hypertensive heart disease without heart failure; I25.10 Atherosclerotic heart disease of native coronary artery without angina pectoris; Z80.9 Family history of malignant neoplasm, unspecified; Z82.49 Family history of ischemic heart disease and other diseases of the circulatory system; Z82.3 Family history of stroke; Z71.6 Tobacco abuse counseling; Z68.24 Body mass index [BMI] 24.0-24.9, adult
CPT/HCPCS: 36415; 70553; 71045; 71250; 80048; 80053; 81003; 82378; 82962; 83036; 83615; 83735; 84443; 84484; 85025; 86850; 86900; 87635; 88309; 88331; 90732; 92610; 93005; 93306; 96365; 97163; 97166; 97530; 99291; A9577; C1713; C9113; J0360; J0690; J1100; J1165; J1815; J1953; J2250; J2270; J2405; J2704; J2710; J3010; J3490; J7050; J7120; J8540

== ENCOUNTER 2020-01-21 17:00 | Inpatient (IN) | payer BC ==
[~2020-01-21] VITALS: Ht 157.5 cm; Wt 55.8 kg
[~2020-01-21 17:00] MED LIST: METF-414 PO
[2020-01-21] MEDS: HYDROCODONE/ACETAMINOPHEN 5/325MG TABLET PO PRN (18:03)
[2020-01-21 18:14] VITALS: BP 131/62
[2020-01-21] MEDS ORDERED: DEXTROSE 50% WATER 50ML SYRINGE IV PRN (18:15)
[2020-01-21] MEDS ORDERED: CLONIDINE 0.1MG TABLET PO PRN (18:15)
[2020-01-21] MEDS ORDERED: HYDROCODONE/ACETAMINOPHEN 10/325MG TABLET PO PRN (18:41)
[2020-01-21 20:00] VITALS: BP 128/61
[2020-01-21] MEDS: LEVETIRACETAM 500MG TABLET PO SCH (20:42)
[2020-01-21] MEDS: FAMOTIDINE 20MG TABLET PO SCH (20:42)
[2020-01-21] MEDS: BLOOD SUGAR DIAGNOSTIC STRIP TEST SCH (20:42)
[2020-01-21] MEDS: INSULIN LISPRO 100 UNITS/ML SUBCUT SCH (20:42)
[2020-01-21] MEDS ORDERED: DEXAMETHASONE 4MG TABLET PO SCH (21:00)
[2020-01-22] MEDS: BLOOD SUGAR DIAGNOSTIC STRIP TEST SCH ×4 (06:11→21:02)
[2020-01-22] MEDS: INSULIN LISPRO 100 UNITS/ML SUBCUT SCH ×4 (06:38→21:00)
[2020-01-22 06:39] LABS: BASOPHILS % 0.1 % (0.0-2.0); HEMATOCRIT. 33.1 % (36.0-48.0); HEMOGLOBIN. 11.6 g/dL (12.0-16.0); LYMPHOCYTES % 22.9 % (20.0-50.0); MEAN CORPUSCULAR HEMOGLOBIN 32.6 pg (28.0-32.0); MEAN PLATELET VOLUME 7.8 fl (7.4-10.4); MONOCYTES % 6.3 % (2.0-8.0); NEUTROPHILS % 70.7 % (40.0-76.0); PLATELET 186 x1000/uL (130-400); RED BLOOD CELL COUNT 3.55 mill/uL (4.2-5.4); RED CELL DISTRIBUTION WIDTH 12.8 % (11.6-14.6)
[2020-01-22 06:51] LABS: CHLORIDE 104 mEq/L (98-107)
[2020-01-22] MEDS: HYDROCODONE/ACETAMINOPHEN 5/325MG TABLET PO PRN ×2 (07:56→17:05)
[2020-01-22 08:00] VITALS: BP 102/58
[2020-01-22] MEDS: FAMOTIDINE 20MG TABLET PO SCH ×2 (08:03→20:55)
[2020-01-22] MEDS: LEVETIRACETAM 500MG TABLET PO SCH ×2 (08:03→20:55)
[2020-01-22] MEDS: METFORMIN HCL 500MG TABLET PO SCH ×2 (08:03→17:00)
[2020-01-22] MEDS: DEXAMETHASONE 2MG TABLET PO SCH (08:03)
[2020-01-22 08:14] VITALS: BP 124/59
[2020-01-22] MEDS: ONDANSETRON 4MG ODT PO PRN (08:15)
[2020-01-22] MEDS: MECLIZINE 25MG TABLET PO PRN (09:42)
[2020-01-22] MEDS ORDERED: BISACODYL 10MG SUPP PR PRN (14:15)
[2020-01-22 15:59] LABS: CLARITY URINE CLOUDY (CLEAR); COLOR URINE YELLOW (YELLOW); KETONES URINE NEGATIVE (NEGATIVE); LEUKOCYTE ESTERASE URINE 2+ (NEGATIVE); NITRITE URINE NEGATIVE (NEGATIVE); OCCULT BLOOD URINE NEGATIVE (NEGATIVE); PROTEIN URINE NEGATIVE (NEGATIVE); SPECIFIC GRAVITY URINE 1.025 (1.005-1.030)
[2020-01-22] MEDS: LACTULOSE 20G/30ML UDC PO SCH ×2 (17:00→20:55)
[2020-01-22] MEDS: DOCUSATE SODIUM 100MG CAPSULE PO SCH (17:00)
[2020-01-22] MEDS ORDERED: NA PHOS,M-B/NA PHOS,DI-BA ENEMA 118ML PR NR (19:15)
[2020-01-22 20:00] VITALS: BP 111/50
[2020-01-22] MEDS: POLYETHYLENE GLYCOL 3350 (17GM) 1 DOSE PACK PO SCH (20:55)
[2020-01-23] MEDS: ACETAMINOPHEN 325MG TABLET PO PRN ×2 (02:26→14:36)
[2020-01-23] MEDS: MECLIZINE 25MG TABLET PO PRN (03:09)
[2020-01-23] MEDS: ONDANSETRON 4MG ODT PO PRN (04:32)
[2020-01-23] MEDS: BLOOD SUGAR DIAGNOSTIC STRIP TEST SCH ×4 (05:59→20:48)
[2020-01-23] MEDS: INSULIN LISPRO 100 UNITS/ML SUBCUT SCH ×4 (05:59→20:48)
[2020-01-23 08:12] LABS: BASOPHILS % 0.1 % (0.0-2.0); HEMATOCRIT. 35.5 % (36.0-48.0); HEMOGLOBIN. 12.3 g/dL (12.0-16.0); LYMPHOCYTES % 43.9 % (20.0-50.0); MEAN CORPUSCULAR HEMOGLOBIN 32.6 pg (28.0-32.0); MEAN CORPUSCULAR VOLUME 94.2 fL (81.0-99.0); MEAN PLATELET VOLUME 7.8 fl (7.4-10.4); MONOCYTES % 6.3 % (2.0-8.0); NEUTROPHILS % 48.7 % (40.0-76.0); PLATELET 207 x1000/uL (130-400); RED BLOOD CELL COUNT 3.76 mill/uL (4.2-5.4); RED CELL DISTRIBUTION WIDTH 12.9 % (11.6-14.6)
[2020-01-23 08:21] VITALS: BP 122/53
[2020-01-23 08:21] LABS: CHLORIDE 106 mEq/L (98-107)
[2020-01-23 08:26] LABS: PHOSPHORUS 4.4 mg/dL (2.5-4.9); TOTAL IRON BINDING CAPACITY 209 ug/dL (250-450)
[2020-01-23 08:45] LABS: FOLIC ACID (FOLATE) SERUM > 20.00 ng/mL (>5.38)
[2020-01-23 08:54] LABS: VITAMIN B12 SERUM 1586 pg/mL (211-911)
[2020-01-23] MEDS ORDERED: POTASSIUM CHLORIDE 20MEQ TABLET SR PO SCH (09:00)
[2020-01-23] MEDS: METFORMIN HCL 500MG TABLET PO SCH ×2 (09:17→16:16)
[2020-01-23] MEDS: FAMOTIDINE 20MG TABLET PO SCH ×2 (09:17→20:48)
[2020-01-23] MEDS: DOCUSATE SODIUM 100MG CAPSULE PO SCH ×2 (09:18→16:16)
[2020-01-23] MEDS: DEXAMETHASONE 2MG TABLET PO SCH (09:18)
[2020-01-23] MEDS: LEVETIRACETAM 500MG TABLET PO SCH ×2 (09:18→20:47)
[2020-01-23] MEDS: HYDROCODONE/ACETAMINOPHEN 5/325MG TABLET PO PRN ×3 (10:03→22:11)
[2020-01-23 11:20] LABS: FERRITIN 377 ng/mL (10-291)
[2020-01-23 13:44] VITALS: BP 94/52
[2020-01-23 14:27] VITALS: BP 112/73
[2020-01-23 20:00] VITALS: BP 101/49
[2020-01-23] MEDS: POLYETHYLENE GLYCOL 3350 (17GM) 1 DOSE PACK PO SCH (20:48)
[2020-01-24 04:30] VITALS: BP 105/54
[2020-01-24] MEDS: MECLIZINE 25MG TABLET PO PRN (04:45)
[2020-01-24 05:55] VITALS: BP 98/42
[2020-01-24] MEDS: BLOOD SUGAR DIAGNOSTIC STRIP TEST SCH ×4 (06:04→20:21)
[2020-01-24 08:00] VITALS: BP 125/65
[2020-01-24] MEDS: DEXAMETHASONE 2MG TABLET PO SCH (08:21)
[2020-01-24] MEDS: DOCUSATE SODIUM 100MG CAPSULE PO SCH ×2 (08:21→17:30)
[2020-01-24] MEDS: LORAZEPAM 1MG TABLET PO PRN ×2 (08:21→17:30)
[2020-01-24] MEDS: FAMOTIDINE 20MG TABLET PO SCH ×2 (08:21→20:14)
[2020-01-24] MEDS: METFORMIN HCL 500MG TABLET PO SCH ×2 (08:21→17:31)
[2020-01-24] MEDS: LEVETIRACETAM 500MG TABLET PO SCH (08:21)
[2020-01-24] MEDS: INSULIN LISPRO 100 UNITS/ML SUBCUT SCH ×4 (08:24→22:58)
[2020-01-24] MEDS ORDERED: NA PHOS,M-B/NA PHOS,DI-BA ENEMA 118ML PR PRN (09:00)
[2020-01-24] MEDS: ONDANSETRON 4MG ODT PO PRN (11:16)
[2020-01-24] MEDS ORDERED: PHENYTOIN SODIUM 1,000 MG in SODIUM CHLORIDE 0.9% 100 ML IV NR (14:00)
[2020-01-24 20:00] VITALS: BP 120/80
[2020-01-24] MEDS: HYDROCODONE/ACETAMINOPHEN 5/325MG TABLET PO PRN (20:14)
[2020-01-24] MEDS: POLYETHYLENE GLYCOL 3350 (17GM) 1 DOSE PACK PO SCH (20:14)
[2020-01-24] MEDS ORDERED: PHENYTOIN SODIUM EXTENDED 100MG CAPSULE PO SCH (22:00)
[2020-01-24] MEDS: RISPERIDONE 1MG TABLET PO SCH (22:53)
[2020-01-24 23:07] VITALS: BP 120/80
[2020-01-25] MEDS: ACETAMINOPHEN 325MG TABLET PO PRN (00:17)
[2020-01-25] MEDS ORDERED: PHENYTOIN SODIUM EXTENDED 100MG CAPSULE PO SCH (01:00)
[2020-01-25] MEDS: LORAZEPAM 1MG TABLET PO PRN ×2 (02:20→17:43)
[2020-01-25] MEDS: HYDROCODONE/ACETAMINOPHEN 5/325MG TABLET PO PRN (05:21)
[2020-01-25] MEDS: INSULIN LISPRO 100 UNITS/ML SUBCUT SCH ×4 (06:39→21:59)
[2020-01-25] MEDS: BLOOD SUGAR DIAGNOSTIC STRIP TEST SCH ×4 (06:40→21:18)
[2020-01-25 06:59] LABS: BASOPHILS % 0.3 % (0.0-2.0); HEMATOCRIT. 33.7 % (36.0-48.0); HEMOGLOBIN. 11.7 g/dL (12.0-16.0); LYMPHOCYTES % 41.2 % (20.0-50.0); MEAN CORPUSCULAR HEMOGLOBIN 32.8 pg (28.0-32.0); MEAN CORPUSCULAR VOLUME 94.3 fL (81.0-99.0); MEAN PLATELET VOLUME 7.3 fl (7.4-10.4); MONOCYTES % 6.5 % (2.0-8.0); PLATELET 210 x1000/uL (130-400); RED BLOOD CELL COUNT 3.58 mill/uL (4.2-5.4); RED CELL DISTRIBUTION WIDTH 13.1 % (11.6-14.6)
[2020-01-25 07:02] LABS: CHLORIDE 104 mEq/L (98-107)
[2020-01-25] MEDS: FAMOTIDINE 20MG TABLET PO SCH ×2 (08:08→21:13)
[2020-01-25] MEDS: METFORMIN HCL 500MG TABLET PO SCH ×2 (08:08→16:41)
[2020-01-25] MEDS: BISACODYL 10MG SUPP PR SCH (08:08)
[2020-01-25] MEDS: RISPERIDONE 1MG TABLET PO SCH ×2 (08:08→21:13)
[2020-01-25] MEDS: DOCUSATE SODIUM 100MG CAPSULE PO SCH ×2 (08:08→16:41)
[2020-01-25 08:14] VITALS: BP 92/50
[2020-01-25 20:00] VITALS: BP 102/61
[2020-01-25] MEDS: PHENYTOIN SODIUM EXTENDED 100MG CAPSULE PO SCH (21:12)
[2020-01-25] MEDS: RISPERIDONE 0.5MG TABLET PO SCH (21:13)
[2020-01-25] MEDS: POLYETHYLENE GLYCOL 3350 (17GM) 1 DOSE PACK PO SCH (21:18)
[2020-01-26 00:19] LABS: CLARITY URINE CLEAR (CLEAR); COLOR URINE YELLOW (YELLOW); KETONES URINE TRACE (NEGATIVE); LEUKOCYTE ESTERASE URINE 1+ (NEGATIVE); NITRITE URINE NEGATIVE (NEGATIVE); OCCULT BLOOD URINE NEGATIVE (NEGATIVE); PH URINE 7.5 (4.5-8.0); PROTEIN URINE NEGATIVE (NEGATIVE); SPECIFIC GRAVITY URINE 1.018 (1.005-1.030)
[2020-01-26] MEDS: HYDROCODONE/ACETAMINOPHEN 5/325MG TABLET PO PRN ×2 (01:54→23:47)
[2020-01-26] MEDS: BLOOD SUGAR DIAGNOSTIC STRIP TEST SCH ×4 (06:44→21:43)
[2020-01-26] MEDS: INSULIN LISPRO 100 UNITS/ML SUBCUT SCH ×4 (07:00→21:00)
[2020-01-26 08:22] VITALS: BP 101/61
[2020-01-26] MEDS: BISACODYL 10MG SUPP PR SCH ×2 (09:00→09:19)
[2020-01-26] MEDS: RISPERIDONE 1MG TABLET PO SCH ×2 (09:18→21:43)
[2020-01-26] MEDS: FAMOTIDINE 20MG TABLET PO SCH ×2 (09:18→21:42)
[2020-01-26] MEDS: RISPERIDONE 0.5MG TABLET PO SCH ×2 (09:18→21:42)
[2020-01-26] MEDS: METFORMIN HCL 500MG TABLET PO SCH ×2 (09:18→17:21)
[2020-01-26] MEDS: DOCUSATE SODIUM 100MG CAPSULE PO SCH ×2 (09:19→17:21)
[2020-01-26 20:00] VITALS: BP 93/55
[2020-01-26] MEDS: PHENYTOIN SODIUM EXTENDED 100MG CAPSULE PO SCH (21:42)
[2020-01-26] MEDS: POLYETHYLENE GLYCOL 3350 (17GM) 1 DOSE PACK PO SCH (21:43)
[2020-01-27] MEDS: BLOOD SUGAR DIAGNOSTIC STRIP TEST SCH ×4 (06:20→21:03)
[2020-01-27] MEDS: INSULIN LISPRO 100 UNITS/ML SUBCUT SCH ×4 (06:20→21:20)
[2020-01-27 07:41] LABS: BASOPHILS % 0.2 % (0.0-2.0); EOSINOPHILS % 1.6 % (0.0-5.0); HEMATOCRIT. 35.1 % (36.0-48.0); HEMOGLOBIN. 12.1 g/dL (12.0-16.0); LYMPHOCYTES % 26.7 % (20.0-50.0); MEAN CORPUSCULAR HEMOGLOBIN 32.9 pg (28.0-32.0); MEAN CORPUSCULAR VOLUME 95.3 fL (81.0-99.0); MEAN PLATELET VOLUME 7.2 fl (7.4-10.4); MONOCYTES % 6.2 % (2.0-8.0); NEUTROPHILS % 65.3 % (40.0-76.0); PLATELET 215 x1000/uL (130-400); RED BLOOD CELL COUNT 3.68 mill/uL (4.2-5.4); RED CELL DISTRIBUTION WIDTH 13.6 % (11.6-14.6)
[2020-01-27 08:01] LABS: CHLORIDE 108 mEq/L (98-107)
[2020-01-27 08:10] LABS: 25-HYDROXY VITAMIN D3 26 ng/mL (.)
[2020-01-27 08:18] VITALS: BP 114/66
[2020-01-27] MEDS: DOCUSATE SODIUM 100MG CAPSULE PO SCH ×2 (09:43→17:11)
[2020-01-27] MEDS: RISPERIDONE 0.5MG TABLET PO SCH ×2 (09:43→21:16)
[2020-01-27] MEDS: FAMOTIDINE 20MG TABLET PO SCH ×2 (09:43→21:16)
[2020-01-27] MEDS: RISPERIDONE 1MG TABLET PO SCH ×2 (09:43→21:16)
[2020-01-27] MEDS: BISACODYL 10MG SUPP PR SCH (09:44)
[2020-01-27] MEDS: METFORMIN HCL 500MG TABLET PO SCH ×2 (09:44→17:11)
[2020-01-27] MEDS ORDERED: LIDOCAINE HCL/PF 1% 2ML VIAL ONE (10:35)
[2020-01-27] MEDS ORDERED: ERGOCALCIFEROL 50000UNITS CAPSULE PO SCH (12:00)
[2020-01-27] MEDS ORDERED: ALBU90AE INH (15:06)
[2020-01-27 17:18] LABS: BG BASE EXCESS -0.4 mmol/L (-2.0-2.0); BG CARBOXYHEMOGLOBIN 0.2 % (0.5-1.5); BG DEOXYHEMOGLOBIN 5.3 % (0.0-5.0); BG FRACTION INSPIRED OXYGEN 21; BG HCO3 ACT 23.5 mmol/L (22.0-26.0); BG METHEMOGLOBIN 0.1 % (0.0-1.5); BG OXYGEN SATURATION 94.7 % (92.0-98.5); BG OXYHEMOGLOBIN 94.4 % (94.0-97.0); BG PH 7.433 (7.350-7.450); BG SAMPLE SITE RIGHT RADIAL; BG VENT MODE ROOM AIR
[2020-01-27 20:00] VITALS: BP 98/47
[2020-01-27] MEDS: HYDROCODONE/ACETAMINOPHEN 5/325MG TABLET PO PRN (20:55)
[2020-01-27] MEDS: POLYETHYLENE GLYCOL 3350 (17GM) 1 DOSE PACK PO SCH (21:16)
[2020-01-27] MEDS: PHENYTOIN SODIUM EXTENDED 100MG CAPSULE PO SCH (21:16)
[2020-01-28] MEDS: HYDROCODONE/ACETAMINOPHEN 5/325MG TABLET PO PRN (02:10)
[2020-01-28] MEDS: BLOOD SUGAR DIAGNOSTIC STRIP TEST SCH ×2 (06:30→11:14)
[2020-01-28] MEDS: INSULIN LISPRO 100 UNITS/ML SUBCUT SCH ×2 (06:30→12:34)
[2020-01-28 08:11] VITALS: BP 139/55
[2020-01-28 08:23] VITALS: BP 139/55
[2020-01-28] MEDS: RISPERIDONE 0.5MG TABLET PO SCH (08:48)
[2020-01-28] MEDS: DOCUSATE SODIUM 100MG CAPSULE PO SCH (08:48)
[2020-01-28] MEDS: RISPERIDONE 1MG TABLET PO SCH (08:48)
[2020-01-28] MEDS: FAMOTIDINE 20MG TABLET PO SCH (08:49)
[2020-01-28] MEDS: METFORMIN HCL 500MG TABLET PO SCH (08:49)
[2020-01-28] MEDS: BISACODYL 10MG SUPP PR SCH (08:51)
== END 2020-01-28 14:00 | disposition home health service (06) | DRG 56 ==
PROVIDERS: ADMIT Physical Medicine & Rehabilitation Spinal Cord Injury Medicine; ATTEND Internal Medicine
DX: G81.94 Hemiplegia, unspecified affecting left nondominant side (principal); G93.6 Cerebral edema; I61.9 Nontraumatic intracerebral hemorrhage, unspecified; C79.31 Secondary malignant neoplasm of brain; E46 Unspecified protein-calorie malnutrition; C34.91 Malignant neoplasm of unspecified part of right bronchus or lung; G93.40 Encephalopathy, unspecified; J44.9 Chronic obstructive pulmonary disease, unspecified; D72.829 Elevated white blood cell count, unspecified; D64.9 Anemia, unspecified; I10 Essential (primary) hypertension; E05.90 Thyrotoxicosis, unspecified without thyrotoxic crisis or storm; E87.6 Hypokalemia; F17.210 Nicotine dependence, cigarettes, uncomplicated; E11.9 Type 2 diabetes mellitus without complications; F29 Unspecified psychosis not due to a substance or known physiological condition; E55.9 Vitamin D deficiency, unspecified; R53.81 Other malaise; R00.1 Bradycardia, unspecified; R42 Dizziness and giddiness; R45.1 Restlessness and agitation; Z71.6 Tobacco abuse counseling; Z79.4 Long term (current) use of insulin; Z80.8 Family history of malignant neoplasm of other organs or systems; Z79.899 Other long term (current) drug therapy; Z68.22 Body mass index [BMI] 22.0-22.9, adult
CPT/HCPCS: 36415; 36600; 80048; 80053; 80185; 81003; 82306; 82375; 82607; 82728; 82746; 82805; 82962; 83036; 83540; 83550; 83735; 84100; 84134; 84443; 85025; 92523; 92610; 93970; 94618; 97110; 97112; 97116; 97129; 97130; 97162; 97166; 97530; 97535; J1165; J1815; J3490; J7050; J8540; J8597; Q0162

== ENCOUNTER → 2020-02-24 | Outpatient (CLI) | payer BC ==
[~2020-02-24] MED LIST changes: +ALBU90AE INH; -METF-414 PO
[2020-02-24 13:26] LABS: CLARITY URINE CLOUDY (CLEAR); COLOR URINE YELLOW (YELLOW); KETONES URINE TRACE (NEGATIVE); LEUKOCYTE ESTERASE URINE NEGATIVE (NEGATIVE); NITRITE URINE NEGATIVE (NEGATIVE); OCCULT BLOOD URINE 3+ (NEGATIVE); PROTEIN URINE 2+ (NEGATIVE); SPECIFIC GRAVITY URINE 1.036 (1.005-1.030)
[2020-02-24 13:30] LABS: CHLORIDE 102 mEq/L (98-107)
[2020-02-24 13:35] LABS: HEMOGLOBIN. 13.2 g/dL (12.0-16.0); MEAN CORPUSCULAR HEMOGLOBIN 34.1 pg (28.0-32.0); MEAN CORPUSCULAR VOLUME 95.9 fL (81.0-99.0); MEAN PLATELET VOLUME 6.5 fl (7.4-10.4); PHOSPHORUS 2.5 mg/dL (2.5-4.9); PLATELET 84 x1000/uL (130-400); RED BLOOD CELL COUNT 3.85 mill/uL (4.2-5.4)
[2020-02-24 14:38] LABS: ATYPICAL LYMPHOCYTES 1
[2020-02-24 14:39] LABS: PLATELET ESTIMATE DECREAS
== END | disposition home or self-care (01) ==
LOC: LAB 12:48
PROVIDERS: ATTEND Internal Medicine
DX: C34.90 Malignant neoplasm of unspecified part of unspecified bronchus or lung (principal)
CPT/HCPCS: 36415; 71046; 80069; 81003; 85025; 85651

== ENCOUNTER → 2024-06-05 | Outpatient (CLI) | payer MEDICARE | END | disposition home or self-care (01) | LOC: MRI 09:49 | PROVIDERS: ATTEND Internal Medicine | DX: M22.42 Chondromalacia patellae, left knee (principal); M12.862 Other specific arthropathies, not elsewhere classified, left knee; M12.861 Other specific arthropathies, not elsewhere classified, right knee; R60.0 Localized edema | CPT/HCPCS: 73721 ==